=== PATIENT | female | born 1980 ===

== ENCOUNTER 2018-01-09 06:41 | Day surgery (SDC) | payer BC ==
[2018-01-09] MEDS ORDERED: Propofol 10 mg/ml Inj (20 ML) ONE ×2 (08:05→08:27)
[2018-01-09] MEDS ORDERED: Sodium Chloride 0.9% 1,000 ML IV SCH (08:45)
[2018-01-09 11:49] VITALS: BP 135/65; PULSE 60; RESP 16; TEMP 97.9; O2SAT 100
== END 2018-01-09 10:17 | disposition home or self-care (01) ==
LOC: ENDO 06:41
PROVIDERS: ATTEND Internal Medicine Gastroenterology
DX: K92.1 Melena (principal); K29.50 Unspecified chronic gastritis without bleeding; K64.8 Other hemorrhoids; R10.13 Epigastric pain
CPT/HCPCS: 43239; 45378; 84703; 88305; 88342; J2001; J2704; J3010; J7030